=== PATIENT | male | born 1980 | race Caucasian/White ===

== ENCOUNTER 2024-10-31 20:39 | Emergency (ER) | payer BC, SELFPAY ==
[2024-10-31 20:41] VITALS: BP 148/104
--- NOTE | 2024-10-31 22:27 | ED.GENMED ---
History of Present Illness
General
Chief Complaint: Musculo-Skeletal Complaint
Source: patient
Exam Limitations: none
Time Seen by Provider: 10/31/24 22:11
History of Present Illness
History of Present Illness:
See MDM
Past History
Past History
ED Past Medical History: Asthma (Remotely as a child) and Psychiatric (Anxiety)
Social History
Tobacco: Non-smoker
Living: with family
Employment: Employed
Family History
Family History: Other (Noncontributory)
Phy Exam
Physical Exam
Physical Exam:
See MDM
Course
Orders/Labs/Results
Orders:
Orders
10/31/24 20:44
Shoulder, Left 2 View CR [CR Shoulder - Left Min 2 View*] Urgent
Comment:
Reason For Exam: injury/pain
Vital Signs
Initial and Last Documented VS:
Initial Vital Signs
Temp Pulse Resp BP Pulse Ox
98.0 F 96 15 148/104 97
10/31/24 20:41 10/31/24 20:41 10/31/24 20:41 10/31/24 20:41 10/31/24 20:41
Last Documented Vital Signs
Temp Pulse Resp BP Pulse Ox
98.0 F 96 15 148/104 97
10/31/24 20:41 10/31/24 20:41 10/31/24 20:41 10/31/24 20:41 10/31/24 20:41
MDM/Problems Addressed
Differential Diagnosis Includes:
Note:
CHIEF COMPLAINT(S)
Left shoulder pain following a fall.
HISTORY OF PRESENT ILLNESS
The patient is a 44-year-old male who presented with left shoulder pain after tripping over his dog and hitting the bullnose of a stair directly with his shoulder. The incident occurred earlier today. The patient reports being unable to stand on his
back initially, but now the pain is localized to the left shoulder. He describes the pain as being primarily around the shoulder and upper back, with occasional extension towards the elbow. The patient mentions a background of working for [employer]
involving significant use of rotational movements, which he thinks might contribute to wear and tear in the shoulder. He expresses concern when moving the shoulder due to pain and is unable to move it freely due to fear of further pain.
Upon examination, the patient could perform limited shoulder movements but reported discomfort, especially with forward motion. He was able to perform some movements like extension and repetitive motions without significant pain but expressed
discomfort if pushed too far.
PAST MEDICAL AND SURGICAL HISTORY
The patient mentions previous back issues but states they were more of a secondary concern compared to the current shoulder injury.
MEDICATIONS
The patient has not yet taken any medications for the current pain but mentioned a plan to take Motrin (ibuprofen).
REVIEW OF SYSTEMS
- Musculoskeletal: left shoulder pain, aggravated by certain movements. No significant pain in the elbow or clavicle.
- Neurological: Some concern about moving the shoulder freely due to pain.
PHYSICAL EXAM
General: Alert, no acute distress.
Skin: Warm, dry.
Head: Normocephalic, atraumatic
Neck: Appears supple, trachea midline.
Eyes, Ears, Nose, Mouth, and Throat: Oral mucosa moist.
Cardiovascular: No signs of cyanosis
Respiratory: Respirations are non-labored.
Abdomen: Non-distended
Musculoskeletal: Mild tenderness to left AC joint. No step-off noted. Decreased range of motion secondary to pain. Distal extremity neurovascular intact
Neurological: No focal neurological deficit observed.
Psychiatric: Cooperative, appropriate mood and affect.
PROBLEM LIST
- Acute: left shoulder pain and possible rotator cuff strain.
- Chronic: Previous unspecified back issues.
PLAN
- Recommend rest, ice application, and Motrin for pain management.
- Referred to a shoulder specialist for further evaluation if symptoms persist.
- Advised considering an MRI if condition does not improve or if further diagnostics are needed.
- Avoid prolonged use of a shoulder sling to prevent stiffness but may use if it alleviates gravity effects on the shoulder.
DIFFERENTIAL DIAGNOSIS
The Differential Diagnosis includes, in no particular order and is not limited to:
- Rotator cuff strain
- Rotator cuff tear
- Shoulder sprain
- Shoulder impingement syndrome
- Tendonitis
- Bursitis
- Fracture of the humerus
- Subluxation or dislocation of the shoulder joint
- Labral tear
- Soft tissue contusion
Disposition:
SUMMARY OF ENCOUNTER
The patient, a 44-year-old male, presented to the emergency department with left shoulder pain after a fall. X-ray imaging of the shoulder was conducted and confirmed no fracture or dislocation. With limited range of motion noted, there is a
suspected rotator cuff injury. Discussed management includes the use of a sling for comfort, rest, ice application, and follow-up with orthopedic specialists if symptoms persist. The patient is in agreement with the management plan and is
comfortable at the time of discharge.
DISPOSITION
Discharge.
ASSESSMENT
Suspected rotator cuff injury with limited range of motion.
PLAN
Recommend rest, ice application, the use of a sling for temporary comfort, and follow-up with orthopedics if symptoms persist. Patient advised to monitor symptoms and seek further evaluation should pain increase or movement become more restricted.
INDEPENDENT REVIEW OF LABS AND INTERPRETATION OF TESTS
My independent interpretation of the shoulder X-ray is negative for fracture or dislocation.
PATIENT EDUCATION AND COUNSELING
Discussed the importance of rest and ice application. Advised the patient to use a sling for comfort in the short term and emphasized the importance of follow-up with orthopedics to evaluate the extent of the rotator cuff injury and to guide further
treatment if necessary.
FOLLOW-UP INSTRUCTIONS
Recommended follow-up with an computer network specialist if symptoms do not improve.
MEDICATION RECONCILIATION
[id number] analgesic such as ibuprofen (Motrin) was advised for pain management as discussed prior to discharge.
MEDICAL DECISION MAKING
-Complexity of Data Reviewed:
Chronic conditions affecting care include previous unspecified back issues. Considered differential diagnoses include rotator cuff strain, rotator cuff tear, shoulder sprain, shoulder impingement syndrome, tendonitis, bursitis, fracture of the
humerus, subluxation or dislocation of the shoulder joint, labral tear, and soft tissue contusion.
-Data:
Category 1
Reviewed previous X-ray study showing negative for any fracture or dislocation.
Category 3
Discussion of management with the patient regarding the use of a sling, NSAIDs for pain management, and follow-up care.
-Risk:
Prescription medication was prescribed�ibuprofen (Motrin) was recommended for at-home management of pain.
DIAGNOSIS
Rotator cuff strain (ICD-10: S46.011A)
*Pulse Oximetry
SaO2: 97
Oxygen Mode of Delivery: Room air
Patient hypoxic: no
*Critical Care Note
Total Time (30-74mins, 75-104mins- exclusive of procedures): Not Applicable
ED Attending Note
-
Portions of this chart may have been created with voice recognition software.� Occasional wrong word or��sound alike� substitutions may have occurred due to the inherent limitations of voice recognition software.
Discharge Plan
Departure
Patient Disposition: Home (Routine Discharge)
Date of Disposition: 10/31/24
Time of Disposition: 22:31
Patient with high blood pressure during this ER visit?: Yes
Discharge Problem:
Injury of left rotator cuff
Prescriptions:
No Action
diclofenac sodium 75 MG tablet,delayed release (DR/EC)
75 mg PO BIDPRN PRN (Reason: neck/back pain with food) Qty: 30 0RF
penicillin V potassium 500 MG tablet
500 mg PO Q6 Qty: 40 0RF
ibuprofen 600 MG tablet
600 mg PO Q6 Qty: 20 0RF
hydrocodone-acetaminophen 5-325 mg tablet
1 tab PO Q4 PRN (Reason: Pain) Qty: 10 0RF
diclofenac sodium 75 mg tablet,delayed release (DR/EC)
75 mg PO BID Qty: 10 0RF
Referrals:
John Alcantara MD [Active, Orthopedics]
UNKNOWN - PT DOES,NOT KNOW [Family Provider]
Activity Restrictions/Additional Instructions:
Please return for any worsening symptoms.
You may return at any time if you have further concerns.
Please follow up with the orthopedist at the first available appointment, preferably this week.
Thank you for choosing [facility].
Interventions
Interventions:
*Risk Screen - Suicide Last Done: 10/31/24 20:41
*General Assessment Last Done: 10/31/24 20:41
*Neglect/Abuse Screening Last Done: 10/31/24 20:41
*ED- Fall Risk Assessment Last Done: 10/31/24 20:41
Discharge Date and Time
Print Language: IRISH
[2024-10-31] MEDS: MOTRIN 600 MG PO (22:39)
== END 2024-10-31 23:08 | disposition home or self-care (01) ==
LOC: EMR 20:39
PROVIDERS: EMERGENCY PHYSICIAN Student in an Organized Health Care Education/Training Program
DX: S46.012A Strain of muscle(s) and tendon(s) of the rotator cuff of left shoulder, initial encounter (principal); J45.909 Unspecified asthma, uncomplicated; W01.198A Fall on same level from slipping, tripping and stumbling with subsequent striking against other object, initial encounter
CPT/HCPCS: 99283; 73030